=== PATIENT | female | born 1980 | race Caucasian/White ===

== ENCOUNTER 2019-12-02 15:03 | Emergency (ER) | payer OTHER ==
[2019-12-02] MEDS ORDERED: DIAZEPAM 5 MG/ML, 2ML ONE (15:59)
[2019-12-02] MEDS ORDERED: FAMOTIDINE 20 MG/2 ML IVPush ONE (16:00)
[2019-12-02] MEDS ORDERED: FAMOTIDINE 20 MG/2 ML ONE (16:00)
[2019-12-02] MEDS ORDERED: DIAZEPAM 5 MG/ML, 2ML IV ONE (16:00)
[2019-12-02] MEDS ORDERED: SODIUM CHLORIDE 0.9% 1,000ML IVBOLUS ONE ×2 (16:00→17:00)
[2019-12-02] MEDS ORDERED: SODIUM CHLORIDE FLUSH 10ML SYR IVF ONE (16:00)
[2019-12-02] MEDS ORDERED: ONDANSETRON 2MG/ML, 2ML IVPush ONE ×2 (16:00→18:00)
[2019-12-02] MEDS ORDERED: ONDANSETRON 2MG/ML, 2ML ONE ×2 (16:00→17:42)
[2019-12-02 16:17] LABS: BASOPHILS # (AUTO) 0.01 x10^3/uL (0-0.1); BASOPHILS % (AUTO) 0 % (0-1); EOSINOPHILS % (AUTO) 0 % (1-7); LYMPHOCYTES # (AUTO) 0.63 x10^3/uL (1-3.4); LYMPHOCYTES % (AUTO) 5 % (22-44); MD NO; MEAN CORPUSCULAR HEMOGLOBIN 32.4 pg (27.0-34.8); MEAN CORPUSCULAR HGB CONC 33.1 g/dL (32.4-35.8); MEAN CORPUSCULAR VOLUME 97.9 fL (80-100); MEAN PLATELET VOLUME 7.8 fL (7.4-10.4); MONOCYTES # (AUTO) 0.63 x10^3/uL (0.2-0.8); MONOCYTES % (AUTO) 5 % (2-9); NEUTROPHILS # (AUTO) 12.08 x10^3/uL (1.8-6.8); NEUTROPHILS % (AUTO) 91 % (42-75); PLATELET COUNT 276 x10^3/uL (130-400); RED BLOOD COUNT 4.39 x10^6/uL (3.82-5.3)
[2019-12-02 16:28] LABS: ALANINE AMINOTRANSFERASE 55 U/L (12-78); ALBUMIN 4.7 g/dL (3.4-5.0); ANION GAP 11 mmol/L (5-15); CALCIUM 9.8 mg/dL (8.5-10.1); CHLORIDE 110 mmol/L (98-107)
[2019-12-02 16:30] LABS: ALKALINE PHOSPHATASE 47 U/L (45-117); BILIRUBIN,TOTAL 0.9 mg/dL (0.2-1.0); TOTAL PROTEIN 7.9 g/dL (6.4-8.2)
--- NOTE | 2019-12-02 17:00 | NUR ---
Pt improved, not nauseous, currently sleeping.
--- NOTE | 2019-12-02 17:46 | NUR ---
Pt medicated for nausea. 2nd bolus complete.
[2019-12-02] MEDS ORDERED: PROMETHAZINE 25 MG/ML, 1ML IM ONE (18:30)
[2019-12-02] MEDS ORDERED: PROMETHAZINE 25 MG/ML, 1ML ONE (18:39)
--- NOTE | 2019-12-02 18:45 | NUR ---
Medicated for nausea with Phenergan. VS updated. Pt states hand cramping resolved.
--- NOTE | 2019-12-02 19:34 | NUR ---
Pt has nausea relief post IM Phenergran. Sleeping. Comfortable.
[2019-12-02 19:35] VITALS: BP 129/91
--- NOTE | 2019-12-02 20:03 | NUR ---
Call made to , no answer.
== END 2019-12-02 21:25 | disposition home or self-care (01) ==
LOC: ED 21:23
DX: R11.2 Nausea with vomiting, unspecified (principal); E86.0 Dehydration; R19.7 Diarrhea, unspecified; R10.84 Generalized abdominal pain
CPT/HCPCS: 36415; 80053; 83690; 85025; 96361; 96372; 96374; 96375; 96376; 99285; J2405; J2550; J3360; J3490; J7030